=== PATIENT | male | born 1955 | race African-American/Black ===

== ENCOUNTER → 2016-12-18 | Outpatient (REF) ==
[~2016-12-18] MED LIST: ALLOPURINOL100 MG PO; BLOOD PRESSURE MED; COLCHICINE; COLCHICINE0.6 MG PO; GLYBURIDE MICRON3 MG PO; INDOMETHACIN; LASIX 40MG TABL40 MG PO; LISINOPRIL PO; LORTAB 5/500 501 TAB; METFORMIN HCL500 M1 PO; NORVASC 5MG5 MG/TAB PO; NOVOLOG 100U100 U/ML SQ; WATER PILL; ZITHROMAX1 GM/PACKE PO; ZOCOR80 MG PO; [UNRECOGNIZED DRUG - REMARK]
== END ==
LOC: WSOH 09:55
DX: Z00.00 Encounter for general adult medical examination without abnormal findings (principal)

== ENCOUNTER 2020-07-24 07:09 | Inpatient (IN) | payer BC, MEDICARE ==
[~2020-07-24] VITALS: Ht 167.6 cm; Wt 87.9 kg
[2020-07-24 07:52] LABS: HEMATOCRIT 37.4 % (42.0-52.0); MEAN CELL VOLUME 98 fl (80.0-100.0); MEAN CORPUSCULAR HEMOGLOBIN 31 pg (27.0-31.0); MEAN CORPUSCULAR HGB CONC 32 g/dl (33.0-37.0); MEAN PLATELET VOLUME 10.7 fl (7.4-10.4); PLATELET COUNT 145 K/mm3 (130-400); RED BLOOD COUNT 3.82 M/mm3 (4.20-5.60); REDCELL DISTRIBUTION WIDTH-CV 13.2 % (11.5-14.5)
[2020-07-24 08:00] LABS: INR 1.7 (0.8-3.0); PROTHROMBIN TIME 19.5 SECONDS (9.7-12.8)
[2020-07-24 08:02] LABS: ALANINE AMINOTRANSFERASE 25 U/L (4-49); ALBUMIN 3.7 gm/dL (3.5-5.0); ALKALINE PHOSPHATASE 72 U/L (50-136); ANION GAP 8 mmol/L (7-16); AST,SGOT 49 U/L (15-37); BILIRUBIN,TOTAL 0.6 mg/dL (0.0-1.0); BLOOD UREA NITROGEN 21 mg/dL (9-20); CALCIUM 7.4 mg/dL (8.4-10.2); CARBON DIOXIDE 23 mmol/L (22-30); CHLORIDE 109 mmol/L (98-107); CREATININE, serum 1.51 (0.66-1.25); GLUCOSE 118 mg/dL (74-106); POTASSIUM 4.2 mmol/L (3.4-5.0); SODIUM 140 mmol/L (137-145)
[2020-07-24 08:03] LABS: PARTIAL THROMBOPLASTIN TIME 41.1 SECONDS (26.0-37.0)
[2020-07-24 08:13] LABS: TROPONIN-I < 0.012 ng/mL (0.000-0.035)
[2020-07-24 08:29] LABS: BAND 9 % (0-10); LYMPHOCYTE 15 % (20.0-51.0); METAMYELOCYTE 1 % (0-0); NEUTROPHILS 70 % (42.0-75.2)
[2020-07-24 08:30] LABS: PLATELET ESTIMATE NORMAL (NORMAL); SCHISTOCYTES 1+; SPHEROCYTE 1+
[2020-07-24 08:31] LABS: OVALOCYTES 1+; POLYCHROMASIA 1+
[2020-07-24 16:00] VITALS: BP 135/83; PULSE 62; TEMP 97.9
[2020-07-24 16:22] VITALS: BP 135/83; PULSE 62; TEMP 97.9
--- NOTE | 2020-07-24 18:45 | NUR ---
Patient alert and oriented. dependent in his room. Completed H&P with patient. Patient unsure of his medication, and immuninization record. Hospitalist want for medical history from patient [facility] office[facility] Inform patient to call his pharmacy for medication list request. Pharmacy closed at this time, Will inform incoming RN. Patient was admitted for weakness, COVID19 positive at admission, patient was unaware of his status. on 6L of o2 via simple mask 95%. LR 100ML/HR. Afebrile. report Patient report tiredness only when ambulating. Patient resting in bed at this time.
[2020-07-24 19:53] VITALS: BP 114/62; BP 140/78; PULSE 101; PULSE 94; TEMP 98.7
--- NOTE | 2020-07-24 21:00 | NUR ---
Initial shift assessment done- denies pain or SOB, states only when up and walking does he feel SOB, o2 sats 94-95% on 6L/nc, Tele on, pt is diaphoretic, tele pads changed, is sinus krysta at times, did dip to 46/min per cytotechnologist supervisor for just few seconds- Jerri YORK notified and parameters were changed .
[2020-07-24 23:16] VITALS: BP 136/84; PULSE 59; TEMP 97.5
[2020-07-25 04:56] VITALS: BP 130/66; PULSE 66; TEMP 97.7
--- NOTE | 2020-07-25 06:00 | NUR ---
Having night sweats- bed changed a couple times - Tele on, SB at times, usually in the 50,s. o2 at 6L/nc with 91% sats
[2020-07-25 08:00] VITALS: BP 130/84; PULSE 75; TEMP 97.3
--- NOTE | 2020-07-25 10:28 | NUR ---
PATIENT CURRENTLY SITTING IN CHAIR WATCHING TV. HE WAS STILL HUNGRY AFTER HIS BREAKFAST, SO AN EXTRA TRAY WAS GIVEN TO HIM AND HE WAS VERY APPRECIATIVE. HIS DEMEANOR WAS VERY PLEASANT. PATIENT DOES NOT C/O ANY PAIN OR DISCOMFORT AT THIS TIME. CALL LIGHT WITHIN REACH. WILL CONTINUE TO MONITOR.
[2020-07-25 12:08] VITALS: BP 138/82; PULSE 70; TEMP 97.5
[2020-07-25 16:00] VITALS: BP 148/90; PULSE 64; TEMP 97.9
--- NOTE | 2020-07-25 16:47 | NUR ---
The patient is positive for COVID. SANIYA collaborated with the patient's RN to connect with the patient. SANIYA contacted the patient's room phone to complete intake. 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 He reports independence with ADLs and does not have any DME. The patient's PCP is Dr. Waddell at the [facility] and he [facility] from [facility]. The patient does not have a DPOA-HC completed. He states that he is and has five children. He states that he keeps in contact with all of them. The patient states that he would like his creosoting engineer, David Lozano (ph#[phone]), to be his person to notify. The patient's cell phone is [phone]. SANIYA informed the patient about his five children are his legal next of kin. The patient plans to return home upon discharge. He had no concerns for SW. He is currently on five liters of oxygen. SW to continue to monitor.
--- NOTE | 2020-07-25 18:33 | NUR ---
PATIENT IS CURRENTLY ON RA AND SAT 94% LR RUNNING. PATIENT IS SITTING IN CHAIR WATCHING TV. WILL CALL LATER IN THE EVENING WHEN HE WANTS TO TAKE A SHOWER. PATIENT DOES NOT C/O ANY DISCOMFORT OR PAIN AT THIS TIME. BED IN LOWEST POSITION. CALL LIGHT WITHIN REACH. INDEPENDENT IN ROOM.
--- NOTE | 2020-07-25 19:05 | NUR ---
Received report from Linda. Seen patient awake, sitting in the recliner. He is on room air. With IV on left AC infusing LR at 100ml/hr. No needs at this time. Call light within reach.
[2020-07-25 20:33] VITALS: BP 122/58; PULSE 69; TEMP 97.7
--- NOTE | 2020-07-25 21:15 | NUR ---
Night meds given. Patient denies pain. He said he wanted to take a shower in a little bit and he will just call if he's ready to have one. Assesment done.
[2020-07-26] VITALS (7 sets, daily range): BP systolic 128–148; BP diastolic 68–92; PULSE 59–65; TEMP 97.7–98.8
--- NOTE | 2020-07-26 00:50 | NUR ---
Went to patient's room to give his Heparin but he was upset saying that he called 3 hours ago for shower but nobody came. Informed him that nobody told me that he called and apologized to him. He was upset as well that no doctor came to see him and he said he felt neglected. At first he doesn't want his Heparin since he said I'm already late and it was supposed to be given at midnight. I apologized to him for being late and I told him that I was on another patient's room. Later on he then agreed to have his heparin. Informed him that I will pass this on to my commodity supervisor so we can address his complains. He said he wanted to talk to her in person and not on the phone. Before leaving the room, I asked him if I can get him anything and he said just ice water and his turkey sandwich.
--- NOTE | 2020-07-26 01:07 | NUR ---
This nurse informed Lori warehouse shipping supervisor regarding patient's complains and that he wanted to talk to her. Lori said she will see the patient. Updated Yessenia charge nurse regarding the complains of patient.
--- NOTE | 2020-07-26 04:35 | NUR ---
curriculum supervisor Lori already went to talk to the patient.
[2020-07-26] MEDS ORDERED: DOXYCYCLINE 10100 MG PO (13:56)
[2020-07-26] MEDS ORDERED: DECADRON6 MG PO (13:57)
--- NOTE | 2020-07-26 14:04 | NUR ---
PT EXPLAINED PROCEDURE. STATED HE DIDN'T NEED OXYGEN AND HE DIDN'T NEED TO WALK BECAUSE HE'S EXERCISED ENOUGH TODAY. SATS 86% ON ROOM AIR. PLACED ON 2 LITERS SATS INCREASED TO 94%. RN NOTIFIED
--- NOTE | 2020-07-26 14:17 | NUR ---
RT REPORTED PT WAS 86% ON RA. PLACED ON 2L NC AND PT STATED "IM NOT WEARING OXYGEN AND IM NOT WEARING IT AT HOME". PT REFUSES TO WORK WITH RT FOR EXERCISE OXIMETRY BECAUSE HE STATED "I'VE ALREADY WALKED AROUND ENOUGH TODAY". DR. BURROWS CALLED AND NOTIFIED OF THIS SITUATION.
[2020-07-26 14:41] LABS: HEMATOCRIT 37.4 % (42.0-52.0); HEMOGLOBIN 12.3 g/dl (13.5-18.0); MEAN CELL VOLUME 95 fl (80.0-100.0); MEAN CORPUSCULAR HEMOGLOBIN 31 pg (27.0-31.0); MEAN CORPUSCULAR HGB CONC 33 g/dl (33.0-37.0); MEAN PLATELET VOLUME 11.2 fl (7.4-10.4); PLATELET COUNT 209 K/mm3 (130-400); RED BLOOD COUNT 3.95 M/mm3 (4.20-5.60)
[2020-07-26 14:52] LABS: ALBUMIN 3.2 gm/dL (3.5-5.0); BILIRUBIN,TOTAL 0.4 mg/dL (0.0-1.0); CALCIUM 7.7 mg/dL (8.4-10.2); CREATININE, serum 1.16 (0.66-1.25); TOTAL PROTEIN 6.4 gm/dL (6.4-8.2)
[2020-07-26 15:15] LABS: BAND 3 % (0-10); LYMPHOCYTE 1 % (20.0-51.0); NEUTROPHILS 92 % (42.0-75.2)
[2020-07-26 15:16] LABS: PLATELET ESTIMATE NORMAL (NORMAL)
[2020-07-26 15:17] LABS: HYPOCHROMIA 1+
--- NOTE | 2020-07-26 16:22 | NUR ---
Die Developer collaborated with RT who advised patient qualifies for 2 liters of home oxygen but patient was adamant that he will not wear it. SW attempted to contact patient by room phone and by cell phone multiple times and left a message. SANIYA collaborated with RN who states patient has been watching videos on his phone. SANIYA also left a message for SANIYA Levine at [facility].
--- NOTE | 2020-07-26 17:50 | NUR ---
PT DENYING EXISTENCE OF COVID19, PT WEARING OXYGEN, PT SHOWERED TODAY, PT FLUIDS WERE DC'D. PT DENIES PAIN/DISCOMFORT, NO OTHER NEEDS.
--- NOTE | 2020-07-26 19:08 | NUR ---
Received report from Dottie. Seen patient asleep in bed. Will check on him again.
--- NOTE | 2020-07-26 20:22 | NUR ---
Assesment done. Patient denies pain. On O2 at 2lpm via NC. No other needs at this time. INT on left AC.
[2020-07-27 05:00] VITALS: BP 128/64; PULSE 63; TEMP 97.9
--- NOTE | 2020-07-27 06:15 | NUR ---
Patient had uneventful night. He denies pain. He is afebrile. Still on O2 at 2lpm via NC.
[2020-07-27 06:36] LABS: BASO % 0.1 % (0.0-2.0); EOS % 0.1 % (0-4.0); GRAN # 7.1 (1.4-6.5); GRAN % 79.5 % (42.2-75.2); LYMPH # 0.9 (1.2-3.4); LYMPH % 10.5 % (20.0-51.0); MEAN CELL VOLUME 95 fl (80.0-100.0); MEAN CORPUSCULAR HEMOGLOBIN 31 pg (27.0-31.0); MEAN CORPUSCULAR HGB CONC 33 g/dl (33.0-37.0); MEAN PLATELET VOLUME 11.2 fl (7.4-10.4); MONO # 0.8 (0.1-0.6); MONO % 8.6 % (1.7-9.3); PLATELET COUNT 209 K/mm3 (130-400); RED BLOOD COUNT 3.85 M/mm3 (4.20-5.60); REDCELL DISTRIBUTION WIDTH-CV 13.1 % (11.5-14.5)
[2020-07-27 06:42] LABS: HEMATOCRIT 36.7 % (42.0-52.0)
[2020-07-27 06:47] LABS: CALCIUM 7.5 mg/dL (8.4-10.2); CREATININE, serum 1.13 (0.66-1.25); POTASSIUM 5.3 mmol/L (3.4-5.0)
--- NOTE | 2020-07-27 07:50 | NUR ---
VITALS TAKEN, PT DENIES PAIN/DISCOMFORT, REPORTS BREATHING EASIER, TRIED TO EDUCATE PT ON OXYGEN USAGE AND PT STATES "ONCE I GET FRESH AIR MY OXYGNE WILL GO UP". MEDICAITONS GIVEN, ASSESSMENT PERFORMED, NO OTHER NEEDS.
[2020-07-27 07:51] VITALS: BP 118/84; PULSE 64; TEMP 97.7
--- NOTE | 2020-07-27 09:50 | NUR ---
PATIENT DOES NOT QUALIFY FOR HOME OXYGEN, STAYED >88% DURING WALK.
[2020-07-27] MEDS ORDERED: ZYLOPRIM 100MG100 MG PO (11:57)
[2020-07-27] MEDS ORDERED: NORVASC 10MG10 MG PO (11:58)
[2020-07-27] MEDS ORDERED: VITAMIN C500 MG PO (11:59)
[2020-07-27] MEDS ORDERED: VITAMIN D 400400 IU PO (12:00)
[2020-07-27] MEDS ORDERED: FOLIC ACID 11 MG/TA1 PO (12:00)
[2020-07-27] MEDS ORDERED: LASIX 20MG TABL20 MG PO (12:01)
[2020-07-27] MEDS ORDERED: ONE-A-DAY ESSE1 EACH PO (12:02)
--- NOTE | 2020-07-27 12:03 | NUR ---
Felt Pad Cutter spoke with RTRafael who advised today patient no longer needs 2 liters at discharge and will not need home oxygen set up. SW collaborated with RN who advised patient to discharge home today. No needs identified at this time.
[2020-07-27 12:35] VITALS: BP 120/64; PULSE 61; TEMP 98.4
--- NOTE | 2020-07-27 13:20 | NUR ---
PT DISCHARGE EDUCATION PROVIDED, LAC REMOVED, PT TAKING OFF TELE, GATHERING PT BELONGINGS.
--- NOTE | 2020-07-27 13:51 | NUR ---
PT ESCORTED OUT WITH BELONGINGS VIA WHEELCHAIR, NO OTHER NEEDS AT THIS TIME
== END 2020-07-27 13:51 | disposition home or self-care (01) | DRG 177 ==
LOC: COL.ER 07:09 → MEDICAL 09:25
PROVIDERS: Family Medicine; Hospitalist; ADMIT Student in an Organized Health Care Education/Training Program
DX: U07.1 COVID-19 (principal); J12.89 Other viral pneumonia; J96.01 Acute respiratory failure with hypoxia; N17.9 Acute kidney failure, unspecified; E87.5 Hyperkalemia; I10 Essential (primary) hypertension; D64.9 Anemia, unspecified; Z90.5 Acquired absence of kidney; Z90.89 Acquired absence of other organs; Z98.84 Bariatric surgery status
CPT/HCPCS: 99222-AI; 99232-AI; 99239; J0456; J0696; J1100; J1644; J7030; J7050; J7120